=== PATIENT | male | born 1940 | race Caucasian/White ===

== ENCOUNTER 2017-09-11 15:19 | Emergency (ER) | payer BC ==
[~2017-09-11] VITALS: Ht 177.8 cm; Wt 93.0 kg
[2017-09-11] MEDS ORDERED: GLIPIZIDE 10 MG10 MG PO (15:25)
[2017-09-11] MEDS ORDERED: NEXIUM40 MG PO (15:25)
[2017-09-11] MEDS ORDERED: FLOMAX0.4 MG PO (15:26)
[2017-09-11] MEDS ORDERED: ZOFRAN ODT4 MG DISSOLVE (15:27)
[2017-09-11 15:55] LABS: ABSOLUTE EOSINOPHILS 0.1 thou/uL (0.0-0.7); ABSOLUTE LYMPHOCYTES 0.8 thou/uL (0.8-5.3); ABSOLUTE MONOCYTES 0.6 thou/uL (0.0-1.2); ABSOLUTE NEUTROPHILS 6.5 thou/uL (1.6-8.1); BASOPHILS 0.3 %; EOSINOPHILS 0.7 %; HEMATOCRIT 30.8 % (42.0-52.0); HEMOGLOBIN 10.4 gm/dL (14.0-18.0); MCH 27.5 pg (26.0-34.0); MCHC 33.9 g/dL (28.0-37.0); MCV 81.1 fL (80.0-100.0); NUCLEATED RBCS 0 /100WBC; PLATELET COUNT* 326 thou/uL (150-400); RBC 3.79 mil/uL (4.50-6.00); RDW-CV 15.1 % (10.5-14.5)
[2017-09-11 16:01] LABS: ANION GAP 7 mmol/L (7-16); BUN 12 mg/dL (7-18); CALCIUM 8.2 mg/dL (8.5-10.1); CHLORIDE 100 mmol/L (98-107); CO2 25 mmol/L (21-32); GLUCOSE 118 mg/dL (70-99); POTASSIUM 4.2 mmol/L (3.5-5.1); SODIUM 132 mmol/L (136-145)
[2017-09-11 16:06] LABS: URINE BLOOD NEGATIVE (Negative); URINE CLARITY CLEAR; URINE COLOR YELLOW; URINE GLUCOSE-RANDOM NEGATIVE (Negative); URINE KETONES TRACE (Negative); URINE LEUKOCYTES-REFLEX NEGATIVE (Negative); URINE NITRITE-REFLEX NEGATIVE (Negative); URINE PROTEIN NEGATIVE (Negative); URINE UROBILINOGEN 0.2 E.U./dl (0.2-1.0)
[2017-09-11 16:08] LABS: ICTOTEST (BILI CONFIRMATORY) Negative (Negative); URINE BILIRUBIN 3+ (Negative)
[2017-09-11 16:08] LABS: ALBUMIN 2.3 g/dL (3.4-5.0); ALKALINE PHOSPHATASE 95 U/L (46-116); LIPASE 90 U/L (73-393); SGOT 19 U/L (15-37); SGPT 20 U/L (30-65); TOTAL BILIRUBIN 0.4 mg/dL (<0.1-1.0); TOTAL PROTEIN 6.2 g/dL (6.4-8.2); TROPONIN-I LEVEL <0.06 ng/mL (<0.06)
[2017-09-11] MEDS ORDERED: ZOFRAN ODT4 MG PO (18:21)
[2017-09-11 18:39] VITALS: BP 153/78
--- NOTE | 2017-09-12 13:41 | EKG ---
[place] [address] ELECTROCARDIOGRAM REPORT Name: JIAN NIELSEN Room: [facility]#: [id number] Admission: 09/11/17 Attend Phys: Discharge: 09/11/17 Date of : 38 Report #: [id number] THIS REPORT FOR: //name// [facility] ED Test Date: 2017-09-11 Test Time: 15:33:24 Pat Name: JIAN NIELSEN Department: Room: Gender: M Behavior Therapist: ALIVIA : 1940 Requested By: Bryanna Joshi Order Number: [id number] MD: Aleksander Calderon Measurements Intervals [place] Rate: 77 P: 45 [place]: 163 QRS: -8 QRSD: 93 T: 33 QT: 380 QTc: 431 Interpretive Statements Sinus rhythm Abnormal R-wave progression, late transition Compared to ECG 07/17/2017 16:10:14 Atrial premature complex(es) no longer present Electronically Signed On 09-12-2017 13:41:35 BUSINESS INTELLIGENCE ANALYST by Aleksander Calderon [email or web address] <ELECTRONICALLY SIGNED> By: Aleksander Calderon MD, [facility] 09/12/17 134 153 32 Aleksander Calderon MD, FAC /EPI
--- NOTE | 2017-09-12 13:42 | EKG ---
[place] [address] ELECTROCARDIOGRAM REPORT Name: JIAN NIELSEN Room: [facility]#: [id number] Admission: 09/11/17 Attend Phys: Discharge: 09/11/17 Date of : 38 Report #: [id number] THIS REPORT FOR: //name// [facility] ED Test Date: 2017-09-11 Test Time: 17:41:50 Pat Name: JIAN NIELSEN Department: Room: Gender: Regional Rehabilitation Director: Manjula BUNCH : 1940 Requested By: Bryanna Joshi Order Number: [id number] MD: Aleksander Calderon Measurements Intervals [place] Rate: 76 P: 51 [place]: 170 QRS: -13 QRSD: 92 T: 3 QT: 400 QTc: 450 Interpretive Statements Sinus rhythm Atrial premature complexes Abnormal R-wave progression, late transition Compared to ECG 07/17/2017 16:10:14 No significant changes Electronically Signed On 09-12-2017 13:41:56 LIVESTOCK AUCTIONEER by Aleksander Calderon [email or web address] <ELECTRONICALLY SIGNED> By: Aleksander Calderon MD, [facility] 09/12/17 1341 174 174 Aleksander Calderon MD, FACC /EPI
== END 2017-09-11 18:40 | disposition home or self-care (01) ==
LOC: M.ERS 15:19
PROVIDERS: Nurse Practitioner Family
DX: R11.2 Nausea with vomiting, unspecified (principal); R10.31 Right lower quadrant pain; I10 Essential (primary) hypertension; E11.9 Type 2 diabetes mellitus without complications; G47.30 Sleep apnea, unspecified; Z88.8 Allergy status to other drugs, medicaments and biological substances

== ENCOUNTER → 2021-04-01 | Outpatient (CLI) | payer BC ==
[~2021-04-01] MED LIST: FLOMAX0.4 MG PO; GLIPIZIDE 10 MG10 MG PO; NEXIUM40 MG PO; ZOFRAN ODT4 MG DISSOLVE; ZOFRAN ODT4 MG PO
== END ==
LOC: M.CT 13:55
PROVIDERS: ATTEND Nurse Practitioner Family
DX: K44.9 Diaphragmatic hernia without obstruction or gangrene (principal); K52.89 Other specified noninfective gastroenteritis and colitis; K82.8 Other specified diseases of gallbladder; K42.9 Umbilical hernia without obstruction or gangrene; K40.20 Bilateral inguinal hernia, without obstruction or gangrene, not specified as recurrent; I70.0 Atherosclerosis of aorta; J84.10 Pulmonary fibrosis, unspecified; I25.10 Atherosclerotic heart disease of native coronary artery without angina pectoris; K57.30 Diverticulosis of large intestine without perforation or abscess without bleeding; N40.0 Benign prostatic hyperplasia without lower urinary tract symptoms; N40.2 Nodular prostate without lower urinary tract symptoms

== ENCOUNTER 2021-05-19 21:47 | Inpatient (IN) | payer BC ==
[~2021-05-19] VITALS: Ht 188 cm; Wt 99.8 kg
[2021-05-19 21:52] VITALS: BP 160/86
[2021-05-19] MEDS ORDERED: METFORMIN HCL500 M3 PO (21:54)
[2021-05-19] MEDS ORDERED: PROSCAR 5MG TABL5 MG PO (21:54)
[2021-05-19] MEDS ORDERED: ZESTRIL10 MG PO (21:55)
[2021-05-19 22:16] LABS: ABSOLUTE LYMPHOCYTES 0.8 thou/uL (0.8-5.3); ABSOLUTE MONOCYTES 0.4 thou/uL (0.0-1.2); ABSOLUTE NEUTROPHILS 3.6 thou/uL (1.6-8.1); BASOPHILS 0.4 %; HEMATOCRIT 32.7 % (42.0-52.0); LYMPHOCYTES 16.5 %; MCH 26.5 pg (26.0-34.0); MCHC 33.7 g/dL (28.0-37.0); MCV 78.8 fL (80.0-100.0); MONOCYTES 7.5 %; MPV 5.9 fl. (7.2-11.1); NUCLEATED RBCS 0 /100WBC; PLATELET COUNT* 358 thou/uL (150-400); POLYS 75.6 %; RBC 4.15 mil/uL (4.50-6.00); RDW-CV 16.2 % (10.5-14.5); WBC 4.8 thou/uL (4.0-11.0)
[2021-05-19 22:21] LABS: CREATININE 1.1 mg/dL (0.6-1.3); POTASSIUM 4.4 mmol/L (3.5-5.1)
[2021-05-19 22:25] LABS: ALBUMIN 2.3 g/dL (3.4-5.0); TOTAL BILIRUBIN 0.6 mg/dL (<0.1-1.0); TOTAL PROTEIN 6.4 g/dL (6.4-8.2)
[2021-05-19 23:12] LABS: URINE BLOOD NEGATIVE (Negative); URINE CLARITY CLEAR; URINE COLOR YELLOW; URINE GLUCOSE-RANDOM NEGATIVE (Negative); URINE KETONES 2+ (Negative); URINE LEUKOCYTES-REFLEX TRACE (Negative); URINE NITRITE-REFLEX NEGATIVE (Negative); URINE PROTEIN NEGATIVE (Negative); URINE UROBILINOGEN 0.2 E.U./dl (0.2-1.0)
[2021-05-19 23:17] LABS: URINE BILIRUBIN 2+ (Negative)
[2021-05-19 23:22] LABS: ICTOTEST (BILI CONFIRMATORY) Positive (Negative)
[2021-05-19 23:53] LABS: CASTS None Seen /LPF (None Seen); SQUAMOUS 0-3 Few /LPF (0-3)
[2021-05-19 23:54] LABS: BACTERIA-REFLEX None Seen /HPF (None Seen); URINE RBC 0-2 Rare /HPF (0-2); URINE WBC-REFLEX 0-5 Rare /HPF (0-5)
[2021-05-19 23:55] LABS: CRYSTALS None Seen /LPF (None Seen)
[2021-05-20 05:18] VITALS: BP 148/79
[2021-05-20 09:15] VITALS: BP 145/77
[2021-05-20 09:15] LABS: CHOLESTEROL 86 mg/dL (<200); HDL CHOLESTEROL 34 mg/dL (>40); LDL CHOLESTEROL 31 mg/dL (<100); TC:HDL 2.5 Ratio (Not establshd); TRIGLYCERIDE 105 mg/dL (<150); VLDL 21 mg/dL (<40)
[2021-05-20 09:16] LABS: SERUM ASSESSMENT Clear
[2021-05-20 09:56] LABS: APTT 25.9 Seconds (25.0-31.3); INR 1.1; PROTIME 10.9 Seconds (9.20-11.50)
[2021-05-20 13:00] VITALS: BP 127/71
--- NOTE | 2021-05-20 13:12 | EKG ---
[place] [address] ELECTROCARDIOGRAM REPORT Name: JIAN NIELSEN Room: [facility]9 ADM IN .R.#: [id number] Admission: 05/20/21 Attend Phys: Josefina Perera, Discharge: Date of : 38 Date of Service: 05/19/212149 Report #: [id number] THIS REPORT FOR: //name// [facility] ED Test Date: 2021-05-19 Test Time: 21:50:28 Pat Name: JIAN NIELSEN Department: Room: [facility] Gender: M Bilingual Inside Sales Representative: MD : 1940 Requested By: Maritza Medina Order Number: [id number] MD: Jian Chahal Measurements Intervals [place] Rate: 82 P: 23 [place]: 163 QRS: -33 QRSD: 96 T: 16 QT: 372 QTc: 435 Interpretive Statements Sinus rhythm Left axis deviation Abnormal R-wave progression, late transition Baseline wander in lead(s) III Compared to ECG 09/11/2017 17:41:50 Atrial premature complex(es) no longer present Electronically Signed On 05-20-2021 13:11:59 CDT by Jian Chahal [email or web address] <ELECTRONICALLY SIGNED> By: Jian Chahal MD, FACC 05/20/21 1311 49 49 Jian Chahal MD, FACC /EPI
--- NOTE | 2021-05-20 13:31 | 2DMMODE ---
[place] [address] 2 D/M-MODE ECHOCARDIOGRAM Name: JIAN NIELSEN Room: 170-9 ADM IN .R.#: [id number] Admission: 05/20/21 Attend Phys: Josefina Perera, Discharge: Date of : 38 Date of Service: 05/20/21 1330 Report #: [id number] THIS REPORT FOR: cc: Juwan Bowling Bradley L. DO Liston, Michael J. MD [facility] ~ APPROVED REPORT Study performed: 05/20/2021 11:43:07 EXAM: Comprehensive 2D, Doppler, and color-flow Echocardiogram Patient Location: In-Patient Room #: er Status: routine BSA: 2.24 HR: 63 bpm BP: 145/77 mmHg Rhythm: NSR Other Information Study Quality: Good Indications Acute NV 2D Dimensions IVSd: 10.06 (7-11mm) LVOT Diam: 24.60 (18-24mm) LVDd: 46.89 mm PWd: 11.28 (7-11mm) Ascending Ao: 37.14 (22-36mm) LVDs: 32.22 (25-40mm) Aortic Root: 42.00 mm Volumes Left Atrial Volume (Systole) LA ESV Index: 24.80 mL/m2 Aortic Valve AoV Peak Omid.: 1.23 m/s AO Peak Gr.: 6.04 mmHg LVOT Max P.92 mmHg AO Mean Gr.: 2.63 mmHg LVOT Mean P.79 mmHg LVOT Max V: 0.99 m/s AO V2 VTI: 22.20 cm LVOT Mean V: 0.61 m/s STACY (VTI): 4.90 cm2 LVOT V1 VTI: 22.90 [place] [address] 2 D/M-MODE ECHOCARDIOGRAM Name: JIAN NIELSEN Room: [address] IN ..#: [id number] Admission: 05/20/21 Attend Phys: Josefina Perera, Discharge: Date of : 38 Date of Service: 05/20/21 1330 Report #: [id number] Mitral Valve E/A Ratio: 0.87 MV Decel. Time: 277.64 ms MV E Max Omid.: 0.62 m/s MV PHT: 80.52 ms MVA (PHT): 2.73 cm2 TDI E/Lateral E': 7.75 E/Medial E': 10.33 Medial E' Omid.: 0.06 m/s Lateral E' Omid.: 0.08 m/s Pulmonary Valve PV Peak Omid.: 0.88 m/s PV Peak Gr.: 3.12 mmHg Tricuspid Valve RAP Estimate: 5.00 mmHg TR Peak Gr.: 23.31 mmHg RVSP: 28.00 mmHg PA Pressure: 28.00 mmHg Left Ventricle The left ventricle is normal size. There is normal LV segmental wall motion. There is normal left ventricular wall thickness. Left ventricular systolic function is normal. LVEF is 55-60%. Grade I - abnormal relaxation pattern. Right Ventricle The right ventricle is normal size. The right ventricular systolic function is normal. Atria The left atrium size is normal. The right atrium size is normal. Aortic Valve The aortic valve is normal in structure. No aortic regurgitation is present. There is no aortic valvular stenosis. Mitral Valve The mitral valve is normal in structure. There is no mitral valve regurgitation noted. No evidence of mitral valve stenosis. Tricuspid Valve The tricuspid valve is normal in structure. Mild tricuspid regurgitation. [place] [address] 2 D/M-MODE ECHOCARDIOGRAM Name: JIAN NIELSEN Room: [address] IN [facility]#: [id number] Admission: 05/20/21 Attend Phys: Josefina Perera, Discharge: Date of : 38 Date of Service: 05/20/21 1330 Report #: [id number] Pulmonic Valve The pulmonary valve is normal in structure. Trace pulmonic regurgitation. Great Vessels Aortic root is mildly dilated. (4.2 cm). IVC is normal in size and collapses >50% with inspiration. Pericardium There is no pericardial effusion. <Conclusion> The left ventricle is normal size. There is normal left ventricular wall thickness. Left ventricular systolic function is normal. LVEF is 55-60%. Grade I - abnormal relaxation pattern. There is normal LV segmental wall motion. Mild tricuspid regurgitation. No pulmonary hypertension. IVC is normal in size and collapses >50% with inspiration. <ELECTRONICALLY SIGNED> By: Aleksander Calderon MD, FACC 05/20/21 133 29 29 Aleksander Calderon MD, FACC /INF
--- NOTE | 2021-05-20 14:59 | EKG ---
[place] [address] ELECTROCARDIOGRAM REPORT Name: JIAN NIELSEN Room: [place] [address] ADM IN .R.#: [id number] Admission: 05/20/21 Attend Phys: Josefina Perera, Discharge: Date of : 38 Date of Service: 05/20/21 0107 Report #: [id number] THIS REPORT FOR: //name// [facility] ED Test Date: 2021-05-20 Test Time: 01:07:51 Pat Name: JIAN NIELSEN Department: Room: [facility] Gender: M Artist Mannequin Coloring: MS : 1940 Requested By: Maritza Medina Order Number: [id number] MD: Jian Chahal Measurements Intervals [place] Rate: 82 P: 31 [place]: 165 QRS: -53 QRSD: 116 T: 44 QT: 391 QTc: 457 Interpretive Statements Sinus rhythm Left anterior fascicular block Compared to ECG 05/19/2021 21:50:28 no change Electronically Signed On 05-20-2021 14:59:03 CDT by Jian Chahal [email or web address] <ELECTRONICALLY SIGNED> By: Jian Chahal MD, FACC 05/20/21 1459 6 6 Jian Chahal MD, [facility] /EPI
[2021-05-20 17:15] VITALS: BP 114/57
[2021-05-20 21:19] VITALS: BP 118/58
[2021-05-21] VITALS (14 sets, daily range): BP systolic 116–174; BP diastolic 64–612
[2021-05-21 03:33] LABS: HEMATOCRIT 33.7 % (42.0-52.0); HEMOGLOBIN 11.1 gm/dL (14.0-18.0); MCH 26.4 pg (26.0-34.0); MCHC 32.8 g/dL (28.0-37.0); MCV 80.4 fL (80.0-100.0); MPV 5.7 fl. (7.2-11.1); RBC 4.2 mil/uL (4.50-6.00); RDW-CV 16.7 % (10.5-14.5); WBC 5.2 thou/uL (4.0-11.0)
[2021-05-21 03:44] LABS: CALCIUM 7.9 mg/dL (8.5-10.1); CREATININE 1.2 mg/dL (0.6-1.3); POTASSIUM 4.3 mmol/L (3.5-5.1)
--- NOTE | 2021-05-21 14:01 | CARD ---
[address] [address] CARDIAC CATH REPORT Name: JIAN NIELSEN Room: [address] IN .R.#: [id number] Admission: 05/20/21 Attend Phys: Josefina Perera MD Discharge: Date of : 38 Report #: [id number] THIS REPORT FOR: cc: Juwan Bowling Bradley L. DO Blick, David R. MD [facility] ~ ADDENDUM APPROVED REPORT Study performed: 05/21/2021 10:23:20 Patient Details Patient Status: In-Patient Room #: The patient is a 81 year-old male Event Personnel Dr Chahal, Flavio Hoskins RN, Andres JENSEN, Rhea Jalloh RTR Procedures Performed Left heart cath with LV gram Indication Non-STEMI , Chest pain Risk Factors Arterial Hypertension, Diabetes Procedure Narrative The patient was brought electively to the Cardiac Catheterization Laboratory and was prepped and draped in a sterile manner. The right wrist was infiltrated with 2% Lidocaine subcutaneous anesthesia. IV conscious sedation was used throughout procedure with appropriate monitoring and was performed in the presence of a registered nurse who was an independent trained observer other than the physician performing the procedure. A 6Fr Glidesheath slender sheath was inserted into the right radial artery. Coronary angiography was performed using coronary diagnostic catheters. The right coronary system was accessed and visualized with a Diagnostic 6Fr JR 4 catheter. The left coronary system was accessed and visualized with a Diagnostic 6Fr JL 4 catheter. The left ventricle was accessed and visualized with a Diagnostic 6Fr Pigtail catheter. Left ventricular/Aortic Valve gradient assessed via catheter pullback. Left ventriculogram was performed in KAUFFMAN projection. Closure device was deployed with a 6 Fr vascband. [place] [address] CARDIAC CATH REPORT Name: JIAN NIELSEN Room: [address] IN [facility]#: [id number] Admission: 05/20/21 Attend Phys: Josefina Perera MD Discharge: Date of : 38 Report #: [id number] procedure well and there were no complications associated with the procedure. There was no hematoma. TR band was applied for hemostasis with 7ml of air in the band. Due tortuosity of the right immoniate artery, a Wholey wire was required to enter the ascending aorta from the right radial artery. Intraoperative Conscious Sedation Sedation start time: 1100 Case end Time: 1124 Versed 1.0 mg Fluoro Time: 5.6 minutes Dose: DAP 48855 cGycm2 963 mGy Contrast Type and Amount: Omnipaque 150 ml Coronary Angiography The patient's coronary anatomy is right dominant. Diagnostic Cath Left Main 30% ostial stenosis LAD 40% mid stenosis Circumflex 0% stenosis OM2 medium sized vessel with 30% proximal stenosis Right Coronary 50% mid stenosis Left Ventriculography The left ventricle is normal in size with normal contractility. The left ventricular ejection fraction is estimated to be 60-65%. Left ventricular wall motion abnormalities are not present. There is no mitral insufficiency. Hemodynamics The aortic pressure is 134/64 mmHg with a mean of 95 mmHg. The left ventricular pressure is 135/10 mmHg with a mean of 15 mmHg. The left ventricular end diastolic pressure is 18 mmHg. There was no gradient across the aortic valve upon pullback. Pullback from the left ventricle to the aorta revealed no gradient across the aortic valve. Conclusion 1. no significant CAD noted with a maximal stenosis of 50% in the mid RCA 2. LVEF 60-65% [place] [address] CARDIAC CATH REPORT Name: JIAN NIELSEN Room: [address] IN [facility].#: [id number] Admission: 05/20/21 Attend Phys: Josefina Perera MD Discharge: Date of : 38 Report #: [id number] Recommendations Aggressive Medical Therapy <ELECTRONICALLY SIGNED> By: Jian Chahal MD, FACC 05/21/21 140 00 1401Dmariah Chahal MD, FACC /INF
[2021-05-22 04:00] VITALS: BP 131/66
[2021-05-22 04:36] LABS: HEMATOCRIT 29.5 % (42.0-52.0); HEMOGLOBIN 9.9 gm/dL (14.0-18.0); MCH 26.7 pg (26.0-34.0); MCHC 33.6 g/dL (28.0-37.0); MCV 79.6 fL (80.0-100.0); MPV 5.5 fl. (7.2-11.1); RBC 3.7 mil/uL (4.50-6.00); RDW-CV 16.2 % (10.5-14.5); WBC 5.8 thou/uL (4.0-11.0)
[2021-05-22 05:03] LABS: CALCIUM 7.8 mg/dL (8.5-10.1); POTASSIUM 3.9 mmol/L (3.5-5.1)
[2021-05-22 08:00] VITALS: BP 126/67
[2021-05-22] MEDS ORDERED: METOPROLOL TART25 MG PO (10:10)
[2021-05-22] MEDS ORDERED: AUGMENTIN 875-1 EACH PO (10:10)
[2021-05-22] MEDS ORDERED: NORVASC5 MG PO (10:10)
[2021-05-22] MEDS ORDERED: LIPITOR10 MG PO (10:10)
[2021-05-22] MEDS ORDERED: BAYER CHEWABLE81 MG PO (10:10)
[2021-05-22 12:00] VITALS: BP 127/60
[2021-05-22 12:18] VITALS: BP 126/67
--- NOTE | 2021-05-22 14:22 | EKG ---
[place] [address] ELECTROCARDIOGRAM REPORT Name: JIAN NIELSEN Room: [address] ADM IN M.R.#: [id number] Admission: 05/20/21 Attend Phys: Josefina Perera, Discharge: Date of : 38 Date of Service: 05/22/21 1207 Report #: [id number] THIS REPORT FOR: //name// [facility] Test Date: 2021-05-22 Test Time: 12:07:45 Pat Name: JIAN NIELSEN Department: Room: [address] Gender: M Bingo Attendant: : 1940 Requested By: Jian Chahal Order Number: [id number] MD: Jian Chahal Measurements Intervals [place] Rate: 55 P: 51 [place]: 169 QRS: -43 QRSD: 116 T: 36 QT: 413 QTc: 395 Interpretive Statements Sinus rhythm Atrial premature complexes Left anterior fascicular block Nonspecific T abnrm, anterolateral leads Compared to ECG 05/20/2021 01:07:51 Atrial premature complex(es) now present Electronically Signed On 05-22-2021 14:21:42 CDT by Jian Chahal [email or web address] <ELECTRONICALLY SIGNED> By: Jian Chahal MD, FACC 05/22/21 1421 1207 1207 Jian Chahal MD, FACC /EPI
== END 2021-05-22 13:10 | disposition home or self-care (01) | DRG 391 ==
LOC: M.ERS 21:47 → M.TBA-ER 05-20 02:41 → M.2W 05-20 02:41
PROVIDERS: Emergency Medicine; Family Medicine; Registered Nurse; ADMIT Internal Medicine; ATTEND Internal Medicine
DX: K57.32 Diverticulitis of large intestine without perforation or abscess without bleeding (principal); I21.4 Non-ST elevation (NSTEMI) myocardial infarction; I25.110 Atherosclerotic heart disease of native coronary artery with unstable angina pectoris; E87.1 Hypo-osmolality and hyponatremia; E44.1 Mild protein-calorie malnutrition; E87.6 Hypokalemia; K21.9 Gastro-esophageal reflux disease without esophagitis; I95.9 Hypotension, unspecified; E11.9 Type 2 diabetes mellitus without complications; G47.33 Obstructive sleep apnea (adult) (pediatric); Z88.8 Allergy status to other drugs, medicaments and biological substances; Z20.822 Contact with and (suspected) exposure to COVID-19; N40.0 Benign prostatic hyperplasia without lower urinary tract symptoms; Z68.28 Body mass index [BMI] 28.0-28.9, adult